=== PATIENT | male | born 1945 | race Caucasian/White ===

== ENCOUNTER 2021-07-10 17:38 | Inpatient (IN) | payer MEDICARE ==
[~2021-07-10] VITALS: Ht 170.2 cm; Wt 64.4 kg
[2021-07-10] MEDS ORDERED: SODIUM CHLORIDE 0.9% 1000ML 1,000 ML IV STA ×2 (17:41→17:48)
[2021-07-10 18:16] LABS: BASOPHILS % 0.5 % (0.0-1.0); EOSINOPHILS # (AUTO) 0.3 (0.0-0.4); EOSINOPHILS % 3.4 % (0.0-6.0); HEMATOCRIT 37.9 % (38.2-49.6); HEMOGLOBIN 13.1 g/dL (14.0-18.0); LYMPHOCYTES # (AUTO) 1.6 (1.0-3.2); LYMPHOCYTES % 21.6 % (18.0-39.1); MEAN CORPUSCULAR HEMOGLOBIN 31.6 pg (28-32); MEAN CORPUSCULAR HGB CONC 34.6 g/dL (31-35); MEAN CORPUSCULAR VOLUME 91.3 fL (81-99); MONOCYTES # (AUTO) 0.8 (0.2-0.8); MONOCYTES % 10.3 % (4.4-11.3); NEUTROPHILS # (AUTO) 4.7 (2.1-6.9); NEUTROPHILS % 63.9 % (38.7-80.0); PLATELET COUNT 185 x10e3/uL (140-360); RED BLOOD COUNT 4.15 x10e6/uL (4.3-5.7); RED CELL DISTRIBUTION WIDTH 11.9 % (11.7-14.4)
[2021-07-10 18:40] LABS: ALBUMIN 3.4 g/dL (3.5-5.0); ALBUMIN/GLOBULIN RATIO 1.1 (0.8-2.0); ANION GAP 12.7 mmol/L (8-16); CALCIUM 8.1 mg/dL (8.4-10.2); CREATININE, SERUM 0.64 mg/dL (0.72-1.25); POTASSIUM 3.7 mmol/L (3.5-5.1)
[2021-07-10] MEDS ORDERED: Morphine 4mg INJECTION 4 MG/ML INJ IV PRN (19:15)
[2021-07-10] MEDS ORDERED: ONDANSETRON HCL INJ 2MG/ML 2ML 2 MG/ML VIAL IV PRN (19:15)
[2021-07-10] MEDS ORDERED: METOPROLOL TARTRATE INJ 1 MG/ML VIAL IV STA (19:29)
[2021-07-10 19:40] LABS: CLARITY,URINE HAZY (CLEAR); COLOR,URINE YELLOW (YELLOW); LEUKOCYTE ESTERASE ,URINE NEGATIVE (NEGATIVE); NITRITE,URINE NEGATIVE (NEGATIVE); PROTEIN,URINE DIPSTICK NEGATIVE (NEGATIVE)
[2021-07-10 19:41] LABS: KETONES,URINE NEGATIVE (NEGATIVE); PHENCYCLIDINE SCREEN,URINE NEGATIVE (NEGATIVE)
[2021-07-10 19:42] LABS: AMPHETAMINES SCREEN,URINE NEGATIVE (NEGATIVE); BENZODIAZEPINES SCREEN,URINE NEGATIVE (NEGATIVE); URINE UROBILINOGEN 0.2 mg/dL (0.2 - 1)
[2021-07-10 19:43] LABS: BACTERIA,URINE FEW /HPF; EPITHELIAL CELLS,URINE FEW /LPF; RBC,URINE 0-5 /HPF (0-5); WBC,URINE (MAN) 0-5 /HPF (0-5)
[2021-07-10] MEDS ORDERED: DIAZEPAM INJ 5 MG/ML 2 ML IV STA (19:52)
[2021-07-10 20:05] VITALS: BP 133/79
[2021-07-10 20:15] LABS: CREATINE KINASE 297 IU/L (30-200)
[2021-07-10] MEDS: SODIUM CHLORIDE 0.9% 1000ML 1,000 ML IV SCH (21:07)
[2021-07-10 21:11] VITALS: BP 133/79
[2021-07-10] MEDS ORDERED: LORAZEPAM INJ 2 MG/ML VIAL IV PRN (21:15)
[2021-07-10] MEDS ORDERED: FLOMAX0.4 MG PO (21:22)
[2021-07-10] MEDS ORDERED: LISINOPRIL5 MG PO (21:22)
[2021-07-10] MEDS ORDERED: VITAMIN B-121000 MCG PO (21:23)
[2021-07-10 21:59] VITALS: BP 133/79
[2021-07-11] VITALS (8 sets, daily range): BP systolic 99–157; BP diastolic 49–91
[2021-07-11] MEDS: SODIUM CHLORIDE 0.9% 1000ML 1,000 ML IV SCH (03:45)
[2021-07-11] MEDS ORDERED: POTASSIUM CHLORIDE 20 MEQ TAB CR PO ONE (07:15)
[2021-07-11] MEDS ORDERED: MAGNESIUM SULFATE 2GM/50ML 50 ML IV ONE (07:30)
[2021-07-11] MEDS ORDERED: ACETAMINOPHEN 325 MG TAB PO PRN (10:00)
[2021-07-11] MEDS ORDERED: ASPIRIN 81 MG CHEW TAB PO ONE (10:00)
[2021-07-11] MEDS ORDERED: SODIUM CHLORIDE 0.9% 1000ML 1,000 ML IV SCH (10:15)
[2021-07-11] MEDS: SODIUM CHLORIDE 1 GM TAB PO SCH ×4 (13:45→23:55)
[2021-07-11] MEDS: CLINDAMYCIN PHOS 900MG/ 50ML 50 ML IV SCH ×3 (14:23→23:55)
[2021-07-11] MEDS ORDERED: SODIUM CHLORIDE 1 GM TAB PO SCH (17:00)
[2021-07-11] MEDS: TAMSULOSIN HCL 0.4 MG CAP PO SCH (17:20)
[2021-07-11] MEDS: MELATONIN 5 MG TABLET PO SCH ×2 (21:00→23:55)
[2021-07-12] VITALS (8 sets, daily range): BP systolic 132–168; BP diastolic 77–96
[2021-07-12] MEDS: CLINDAMYCIN PHOS 900MG/ 50ML 50 ML IV SCH ×3 (07:00→22:21)
[2021-07-12] MEDS: ASPIRIN 81 MG ENTERIC COATED PO SCH (09:06)
[2021-07-12] MEDS: CYANOCOBALAMIN 1,000 MCG TAB PO SCH (09:07)
[2021-07-12] MEDS: LISINOPRIL 2.5 MG TAB PO SCH (09:07)
[2021-07-12] MEDS: SODIUM CHLORIDE 1 GM TAB PO SCH ×3 (09:07→20:45)
[2021-07-12] MEDS: METOPROLOL SUCCINATE 25 MG TAB XL PO SCH (09:07)
[2021-07-12] MEDS: TAMSULOSIN HCL 0.4 MG CAP PO SCH (16:33)
[2021-07-12] MEDS: MELATONIN 5 MG TABLET PO SCH (20:45)
[2021-07-13 00:17] VITALS: BP 148/56
[2021-07-13] MEDS: CLINDAMYCIN PHOS 900MG/ 50ML 50 ML IV SCH ×3 (05:41→21:36)
[2021-07-13 05:59] VITALS: BP 134/70
[2021-07-13 08:11] VITALS: BP 129/64
[2021-07-13] MEDS ORDERED: ASPIRIN 81 MG CHEW TAB PO ONE (08:45)
[2021-07-13] MEDS: ASPIRIN 81 MG ENTERIC COATED PO SCH (09:16)
[2021-07-13] MEDS: METOPROLOL SUCCINATE 25 MG TAB XL PO SCH (09:17)
[2021-07-13] MEDS: SODIUM CHLORIDE 1 GM TAB PO SCH ×3 (09:17→20:25)
[2021-07-13] MEDS: LISINOPRIL 2.5 MG TAB PO SCH (09:17)
[2021-07-13] MEDS: CYANOCOBALAMIN 1,000 MCG TAB PO SCH (09:18)
[2021-07-13 10:09] LABS: ALBUMIN 3.3 g/dL (3.5-5.0); ALBUMIN/GLOBULIN RATIO 1.2 (0.8-2.0); ANION GAP 10.9 mmol/L (8-16); CALCIUM 8.3 mg/dL (8.4-10.2); CREATININE, SERUM 0.64 mg/dL (0.72-1.25); POTASSIUM 3.9 mmol/L (3.5-5.1)
[2021-07-13 10:47] LABS: CREATINE KINASE MB 5.4 ng/mL (0-5.0)
[2021-07-13 11:59] VITALS: BP 131/69
[2021-07-13] MEDS: TAMSULOSIN HCL 0.4 MG CAP PO SCH (17:13)
[2021-07-13 20:00] VITALS: BP 152/75
[2021-07-13] MEDS: MELATONIN 5 MG TABLET PO SCH (20:25)
[2021-07-13 23:49] VITALS: BP 132/96
[2021-07-14 04:00] VITALS: BP 175/90
[2021-07-14] MEDS: CLINDAMYCIN PHOS 900MG/ 50ML 50 ML IV SCH (05:18)
[2021-07-14 08:13] VITALS: BP 166/95
[2021-07-14] MEDS ORDERED: HYDRALAZINE HCL 20 MG/ML VIAL IV PRN (08:15)
[2021-07-14 08:36] VITALS: BP 166/95
[2021-07-14] MEDS: ASPIRIN 81 MG ENTERIC COATED PO SCH (08:38)
[2021-07-14] MEDS: CYANOCOBALAMIN 1,000 MCG TAB PO SCH (08:39)
[2021-07-14] MEDS: SODIUM CHLORIDE 1 GM TAB PO SCH (08:39)
[2021-07-14] MEDS: METOPROLOL SUCCINATE 25 MG TAB XL PO SCH (08:40)
[2021-07-14] MEDS ORDERED: LISINOPRIL 10 MG TAB PO SCH (09:00)
[2021-07-14 12:12] VITALS: BP 156/72
== END 2021-07-14 15:58 | disposition home or self-care (01) | DRG 872 ==
LOC: ER 17:40 → ERHOLD 19:06 → MED/SURG3 20:17
PROVIDERS: ADMIT Internal Medicine; ATTEND Internal Medicine
DX: A41.9 Sepsis, unspecified organism (principal); E87.1 Hypo-osmolality and hyponatremia; L03.116 Cellulitis of left lower limb; L03.115 Cellulitis of right lower limb; M62.82 Rhabdomyolysis; Y90.1 Blood alcohol level of 20-39 mg/100 ml; I10 Essential (primary) hypertension; N40.0 Benign prostatic hyperplasia without lower urinary tract symptoms; Z99.3 Dependence on wheelchair; Z59.00 Homelessness unspecified; J44.9 Chronic obstructive pulmonary disease, unspecified; Z91.19 Patient's noncompliance with other medical treatment and regimen; M21.372 Foot drop, left foot; M21.371 Foot drop, right foot; L22 Diaper dermatitis; E87.8 Other disorders of electrolyte and fluid balance, not elsewhere classified; F10.20 Alcohol dependence, uncomplicated; F17.210 Nicotine dependence, cigarettes, uncomplicated; I87.8 Other specified disorders of veins; Z20.822 Contact with and (suspected) exposure to COVID-19
CPT/HCPCS: 36415; 71045; 80053; 80307; 80320; 81001; 82550; 82553; 83605; 83880; 84484; 85025; 87040; 93005; 93306; 93970; 97139; 99251; 99284; J2543; J3475; J7030